=== PATIENT | male | born 1970 | race Caucasian/White ===

== ENCOUNTER → 2022-03-06 02:30 | Outpatient (CLI) | payer MEDICAID, SELFPAY ==
--- NOTE | 2022-03-06 07:15 | DI.RAD_ITS ---
Exam(s) XR SACROILIAC JOINTS EXAM: XR SACROILIAC JOINTS CLINICAL HISTORY: Evaluate for ankylosing spondylitis, low back pain, m54.5 TECHNIQUE: COMPARISON: No exams were available for comparison FINDINGS: Three views were obtained. The SI joints appear well maintained. No sacral or iliac bony abnormalit y seen. Mild hypertrophic degenerative changes of the lower lumbar facet joints noted. IMPRESSION: Negative examination of the SI joints. RADIATION DOSE DELIVERED: Total DLP
--- NOTE | 2022-03-06 07:15 | DI.RAD_ITS ---
Exam(s) XR LUMBAR SPINE COMPLETE EXAM: XR LUMBAR SPINE COMPLETE CLINICAL HISTORY: Possible ankylosing spondylitis, low back pain, m54.5 TECHNIQUE: COMPARISON: CR LUMBAR SPINE COMPLETE from 05/25/2009 FINDINGS: Five views were obtained. The intervertebral disc spaces appear fairly well maintained. Moderate hy pertrophic endplate and facet degenerative changes noted throughout the lumbar spine. No compression fracture seen. No erosive or destructive lesion. IMPRESSION: Moderate DJD lumbar spine RADIATION DOSE DELIVERED: Total DLP
== END ==
PROVIDERS: PCP Family Medicine; Visit Provider Family Medicine
DX: M54.59 Other low back pain (principal); M47.816 Spondylosis without myelopathy or radiculopathy, lumbar region
CPT/HCPCS: 72110; 72202